=== PATIENT | female | born 1970 | race Caucasian/White ===

== ENCOUNTER 2022-05-28 19:46 | Inpatient (IN) | payer MEDICAID, OTHER ==
[~2022-05-28] VITALS: Ht 167.6 cm; Wt 60.3 kg
[~2022-05-28 19:46] MED LIST: ARIP20TA PO; CLOZ100T32 PO; DOCU100C33 PO; FENO145T PO; LITH300T4 PO; LUBI24CA2 PO; MOME17N NASAL; PANT-31 PO; PROP20TA18 PO; PSYL3.4P5 PO; QUET100T PO; TRIH2TAB3 PO
[2022-05-28] MEDS ORDERED: DiphenhydrAMINE HCL 50 MG/ML VIAL IM ONE (21:45)
[2022-05-28] MEDS ORDERED: ZIPRASIDONE MESYLATE 20 MG/VIAL IM ONE (21:45)
[2022-05-28] MEDS ORDERED: DIAZEPAM 5 MG/ML 2 ML SYRINGE IM ONE (21:45)
[2022-05-28 23:16] LABS: APPEARANCE,URINE CLEAR (CLEAR); BILIRUBIN,URINE NEGATIVE (NEGATIVE); GLUCOSE, URINE (UA) >=1000 mg/dL (NEGATIVE); KETONES,URINE NEGATIVE (NEGATIVE); LEUKOCYTE ESTERASE ,URINE NEGATIVE (NEGATIVE); NITRATE,URINE NEGATIVE (NEGATIVE); OCCULT BLOOD,URINE NEGATIVE (NEGATIVE); PROTEIN,URINE NEGATIVE (NEGATIVE); SPECIFIC GRAVITIY, URINE 1.027 (1.003-1.030); UROBILINOGEN,URINE <=1.0 mg/dL (<=1.0)
[2022-05-28 23:25] LABS: BACTERIA,URINE None Seen /HPF (None Seen); RBC,URINE None Seen /HPF (0-2); WBC,URINE 0-2 /HPF (0-5)
[2022-05-28 23:27] LABS: AMPHET/METH SCREEN,URINE NEGATIVE (NEGATIVE); BARBITURATE SCREEN, URINE NEGATIVE (NEGATIVE); BENZODIAZEPINES SCREEN,URINE NEGATIVE (NEGATIVE); CANNABINOID SCREEN,URINE NEGATIVE (NEGATIVE); COCAINE SCREEN,URINE NEGATIVE (NEGATIVE); METHADONE SCREEN, URINE NEGATIVE (NEGATIVE); OPIATE SCREEN,URINE NEGATIVE (NEGATIVE)
[2022-05-28 23:29] LABS: PHENCYCLIDINE SCREEN,URINE NEGATIVE (NEGATIVE)
[2022-05-28 23:34] LABS: BASOPHILS % (AUTO) 0.7 % (0.0-2.0); EOSINOPHILS % (AUTO) 1.6 % (1.0-6.0); HEMATOCRIT 39.8 % (36-46); HEMOGLOBIN 13.6 g/dL (12.0-16.0); LYMPHOCYTES # (AUTO) 1.4 K/uL (1.0-4.8); LYMPHOCYTES % (AUTO) 23.1 % (22.0-44.0); MEAN CORPUSCULAR HEMOGLOBIN 29.6 pg (26.0-34.0); MEAN CORPUSCULAR HGB CONC 34.3 G/dL (31.0-37.0); MEAN CORPUSCULAR VOLUME 86 fL (80-100); MONOCYTES # (AUTO) 0.6 K/uL (0.1-1.0); MONOCYTES % (AUTO) 9.2 % (2.0-9.0); NEUTROPHILS # (AUTO) 3.9 K/uL (1.8-7.7); NEUTROPHILS % (AUTO) 65.4 % (40.0-70.0); PLATELET COUNT (AUTO) 231 K/uL (150-450); RED BLOOD CELL COUNT(AUTO) 4.61 MIL/uL (4.00-5.20)
[2022-05-28 23:42] LABS: ANION GAP 4 mmol/L (8-16); CARBON DIOXIDE 28 mmol/L (22-29); CHLORIDE 104 mmol/L (98-107); CREATININE 0.76 mg/dL (0.60-1.30); GLUCOSE,RANDOM 241 mg/dL (70-110); SODIUM SERUM 136 mmol/L (136-145); UREA NITROGEN, BLOOD 14 mg/dL (7-18)
[2022-05-28 23:43] LABS: GLOMERULAR FILTR. RATE CALC > 60 mL/min (>60)
[2022-05-28 23:47] LABS: ALANINE AMINOTRANSFERASE 45 U/L (12-78); ALBUMIN 3.7 g/dL (3.4-5.0); ALKALINE PHOSPHATASE 103 U/L (46-116); ASPARTATE AMINOTRANSFERASE 29 U/L (15-37); BILIRUBIN,TOTAL 0.5 mg/dL (0.1-1.0); TOTAL PROTEIN, SERUM 6.7 g/dL (6.4-8.2)
[2022-05-29 00:25] LABS: COVID AG,FIA SOURCE NASAL SWAB
[2022-05-29 06:26] VITALS: BP 116/72
[2022-05-29 08:00] VITALS: BP 104/72
[2022-05-29] MEDS ORDERED: BENZOCAINE/MENTHOL LOZENGE PO PRN (18:45)
[2022-05-29] MEDS ORDERED: ONDANSETRON HCL 4 MG TABLET PO PRN (18:45)
[2022-05-29] MEDS ORDERED: ACETAMINOPHEN 325 MG TABLET PO PRN (18:45)
[2022-05-29] MEDS ORDERED: MAG HYDROX/AL HYDROX/SIMETH ES 30 ML SUSPENSION UDCUP PO PRN (18:45)
[2022-05-29] MEDS ORDERED: BACITRACIN 28 GM OINTMENT TP PRN (18:45)
[2022-05-29] MEDS ORDERED: CloNIDine HCL 0.1 MG TABLET PO PRN (18:45)
[2022-05-29] MEDS ORDERED: GLUCAGON,HUMAN RECOMBINANT 1 MG VIAL IM PRN ×2 (18:45→19:00)
[2022-05-29] MEDS ORDERED: IBUPROFEN 600 MG TABLET PO PRN (18:45)
[2022-05-29] MEDS ORDERED: OMEPRAZOLE 20 MG CAPSULE PO PRN (18:45)
[2022-05-29] MEDS ORDERED: ALBUTEROL SULFATE HFA 90 MCG/PUFF 8 GM INHALER IH PRN (18:45)
[2022-05-29] MEDS ORDERED: PETROLATUM,WHITE 28 GM JELLY TP PRN (18:45)
[2022-05-29] MEDS ORDERED: MAGNESIUM HYDROXIDE SUSPENSION 30 ML UDCUP PO PRN (18:45)
[2022-05-29] MEDS ORDERED: LOPERAMIDE HCL 2 MG CAPSULE PO PRN (18:45)
[2022-05-30] MEDS: LUBIPROSTONE 24 MCG CAPSULE PO SCH (08:17)
[2022-05-30] MEDS: MOMETASONE FUROATE 50 MCG/SPRAY 17 GM NASAL SPRAY NASAL SCH (08:17)
[2022-05-30] MEDS: LITHIUM CARBONATE 300 MG CAPSULE PO SCH ×2 (08:17→17:00)
[2022-05-30] MEDS ORDERED: CloZAPine 25 MG TABLET PO SCH (09:00)
[2022-05-30 21:47] VITALS: BP 109/62
[2022-05-31] MEDS: LITHIUM CARBONATE 300 MG CAPSULE PO SCH ×2 (08:01→18:29)
[2022-05-31] MEDS: LUBIPROSTONE 24 MCG CAPSULE PO SCH (08:04)
[2022-05-31] MEDS: MOMETASONE FUROATE 50 MCG/SPRAY 17 GM NASAL SPRAY NASAL SCH (08:05)
[2022-05-31] MEDS ORDERED: CloZAPine 25 MG TABLET PO SCH ×2 (09:00→21:00)
[2022-05-31] MEDS: ZOLPIDEM TARTRATE 10 MG TABLET PO PRN (21:23)
[2022-05-31 22:11] LABS: GLUCOMETER DEV NAME(LOC) BV3S.; GLUCOSE,POINT OF CARE 416 MG/DL (70-110)
[2022-05-31] MEDS: INSULIN LISPRO 100 UNITS/ML SQ PRN ×2 (22:11→22:13)
[2022-05-31 23:06] LABS: GLUCOMETER DEV NAME(LOC) BV3S.; GLUCOSE,POINT OF CARE 369 MG/DL (70-110)
[2022-06-01 00:51] LABS: GLUCOMETER DEV NAME(LOC) BV3S.; GLUCOSE,POINT OF CARE 212 MG/DL (70-110)
[2022-06-01 03:12] VITALS: BP 123/67
[2022-06-01 06:36] LABS: GLUCOMETER DEV NAME(LOC) BV3S.; GLUCOSE,POINT OF CARE 243 MG/DL (70-110)
[2022-06-01 08:29] VITALS: BP 116/69
[2022-06-01] MEDS: LUBIPROSTONE 24 MCG CAPSULE PO SCH (08:32)
[2022-06-01] MEDS: LITHIUM CARBONATE 300 MG CAPSULE PO SCH ×2 (08:32→16:13)
[2022-06-01] MEDS: MOMETASONE FUROATE 50 MCG/SPRAY 17 GM NASAL SPRAY NASAL SCH (08:33)
[2022-06-01] MEDS: LORazepam 2 MG TABLET PO PRN ×2 (08:43→19:17)
[2022-06-01] MEDS ORDERED: CloZAPine 25 MG TABLET PO SCH ×2 (09:00→21:00)
[2022-06-01] MEDS: INSULIN LISPRO 100 UNITS/ML SQ PRN ×3 (11:59→21:20)
[2022-06-01 12:17] LABS: GLUCOMETER DEV NAME(LOC) BV3S.; GLUCOSE,POINT OF CARE 335 MG/DL (70-110)
[2022-06-01 16:56] LABS: GLUCOMETER DEV NAME(LOC) BV3S.; GLUCOSE,POINT OF CARE 307 MG/DL (70-110)
[2022-06-01] MEDS: ZOLPIDEM TARTRATE 10 MG TABLET PO PRN (20:14)
[2022-06-01 21:31] LABS: GLUCOMETER DEV NAME(LOC) BV3S.; GLUCOSE,POINT OF CARE 266 MG/DL (70-110)
[2022-06-02 06:41] LABS: GLUCOMETER DEV NAME(LOC) BV3S.; GLUCOSE,POINT OF CARE 247 MG/DL (70-110)
[2022-06-02] MEDS: INSULIN LISPRO 100 UNITS/ML SQ PRN ×2 (06:52→11:51)
[2022-06-02] MEDS: CloZAPine 25 MG TABLET PO SCH ×2 (08:52→20:03)
[2022-06-02] MEDS: LITHIUM CARBONATE 300 MG CAPSULE PO SCH ×2 (08:52→16:06)
[2022-06-02] MEDS: LUBIPROSTONE 24 MCG CAPSULE PO SCH (08:52)
[2022-06-02 09:00] VITALS: BP 107/68
[2022-06-02] MEDS: LORazepam 2 MG TABLET PO PRN (09:00)
[2022-06-02] MEDS: MOMETASONE FUROATE 50 MCG/SPRAY 17 GM NASAL SPRAY NASAL SCH (09:00)
[2022-06-02 12:01] LABS: GLUCOMETER DEV NAME(LOC) BV3S.; GLUCOSE,POINT OF CARE 242 MG/DL (70-110)
[2022-06-02 13:30] VITALS: BP 107/68
[2022-06-02 16:31] LABS: GLUCOMETER DEV NAME(LOC) BV3S.; GLUCOSE,POINT OF CARE 237 MG/DL (70-110)
[2022-06-02] MEDS: ZOLPIDEM TARTRATE 10 MG TABLET PO PRN (20:03)
[2022-06-02] MEDS: DOCUSATE SODIUM 100 MG CAPSULE PO PRN (20:03)
[2022-06-02 20:27] VITALS: BP 102/60
[2022-06-03 06:16] LABS: GLUCOMETER DEV NAME(LOC) BV3S.; GLUCOSE,POINT OF CARE 263 MG/DL (70-110)
[2022-06-03] MEDS: INSULIN LISPRO 100 UNITS/ML SQ PRN ×3 (06:44→20:25)
[2022-06-03] MEDS: LUBIPROSTONE 24 MCG CAPSULE PO SCH (07:23)
[2022-06-03] MEDS: MULTIVITAMINS WITH MINERALS, THERAPEUTIC TABLET PO SCH (08:07)
[2022-06-03] MEDS: LITHIUM CARBONATE 300 MG CAPSULE PO SCH ×2 (08:08→16:20)
[2022-06-03] MEDS: CloZAPine 25 MG TABLET PO SCH ×2 (08:09→20:26)
[2022-06-03 08:56] VITALS: BP 100/66
[2022-06-03 12:06] LABS: GLUCOMETER DEV NAME(LOC) BV3S.; GLUCOSE,POINT OF CARE 262 MG/DL (70-110)
[2022-06-03 16:50] LABS: GLUCOMETER DEV NAME(LOC) BV3S.; GLUCOSE,POINT OF CARE 217 MG/DL (70-110)
[2022-06-03 20:06] VITALS: BP 113/71
[2022-06-03] MEDS: ZOLPIDEM TARTRATE 10 MG TABLET PO PRN (20:26)
[2022-06-03] MEDS: DOCUSATE SODIUM 100 MG CAPSULE PO PRN (21:00)
[2022-06-03 21:26] LABS: GLUCOMETER DEV NAME(LOC) BV3S.; GLUCOSE,POINT OF CARE 307 MG/DL (70-110)
[2022-06-04] MEDS: LUBIPROSTONE 24 MCG CAPSULE PO SCH (06:44)
[2022-06-04] MEDS: LITHIUM CARBONATE 300 MG CAPSULE PO SCH ×2 (08:18→16:10)
[2022-06-04] MEDS: MULTIVITAMINS WITH MINERALS, THERAPEUTIC TABLET PO SCH (08:19)
[2022-06-04] MEDS ORDERED: CloZAPine 25 MG TABLET PO SCH (09:00)
[2022-06-04 09:40] VITALS: BP 101/66
[2022-06-04] MEDS: DOCUSATE SODIUM 100 MG CAPSULE PO PRN (14:06)
[2022-06-04] MEDS ORDERED: CloZAPine 100 MG TABLET PO SCH (21:00)
[2022-06-05] MEDS: LUBIPROSTONE 24 MCG CAPSULE PO SCH (07:01)
[2022-06-05] MEDS: MULTIVITAMINS WITH MINERALS, THERAPEUTIC TABLET PO SCH (08:19)
[2022-06-05] MEDS: LITHIUM CARBONATE 300 MG CAPSULE PO SCH ×2 (08:20→16:50)
[2022-06-05 08:25] VITALS: BP 106/82
[2022-06-05] MEDS ORDERED: CloZAPine 25 MG TABLET PO SCH (09:00)
[2022-06-05 20:28] VITALS: BP 112/72
[2022-06-05] MEDS ORDERED: CloZAPine 100 MG TABLET PO SCH (21:00)
[2022-06-05] MEDS: ZOLPIDEM TARTRATE 10 MG TABLET PO PRN (21:01)
[2022-06-06] MEDS: LUBIPROSTONE 24 MCG CAPSULE PO SCH (06:44)
[2022-06-06 08:26] VITALS: BP 112/60
[2022-06-06] MEDS: LITHIUM CARBONATE 300 MG CAPSULE PO SCH ×2 (08:55→16:10)
[2022-06-06] MEDS: MULTIVITAMINS WITH MINERALS, THERAPEUTIC TABLET PO SCH (08:55)
[2022-06-06] MEDS ORDERED: CloZAPine 25 MG TABLET PO SCH (09:00)
[2022-06-06 11:26] LABS: GLUCOMETER DEV NAME(LOC) POC.BV
[2022-06-06] MEDS ORDERED: CloZAPine 100 MG TABLET PO SCH (21:00)
[2022-06-06] MEDS: ZOLPIDEM TARTRATE 10 MG TABLET PO PRN (21:03)
[2022-06-07] MEDS: LUBIPROSTONE 24 MCG CAPSULE PO SCH (06:49)
[2022-06-07] MEDS: MULTIVITAMINS WITH MINERALS, THERAPEUTIC TABLET PO SCH (08:19)
[2022-06-07] MEDS: LITHIUM CARBONATE 300 MG CAPSULE PO SCH ×2 (08:19→16:59)
[2022-06-07 08:27] VITALS: BP 122/69
[2022-06-07] MEDS ORDERED: CloZAPine 100 MG TABLET PO SCH (09:00)
[2022-06-07 12:11] LABS: GLUCOMETER DEV NAME(LOC) BV3S.; GLUCOSE,POINT OF CARE 337 MG/DL (70-110)
[2022-06-07] MEDS: ZOLPIDEM TARTRATE 10 MG TABLET PO PRN (20:27)
[2022-06-07] MEDS: QUEtiapine FUMARATE 200 MG TABLET PO SCH ×2 (20:30→21:13)
[2022-06-08] MEDS: LUBIPROSTONE 24 MCG CAPSULE PO SCH (06:48)
[2022-06-08] MEDS: MULTIVITAMINS WITH MINERALS, THERAPEUTIC TABLET PO SCH (08:10)
[2022-06-08] MEDS: LITHIUM CARBONATE 300 MG CAPSULE PO SCH ×2 (08:10→17:02)
[2022-06-08] MEDS: QUEtiapine FUMARATE 100 MG TABLET PO SCH (08:10)
[2022-06-08] MEDS: QUEtiapine FUMARATE 200 MG TABLET PO SCH (20:10)
[2022-06-08 20:26] VITALS: BP 110/67
[2022-06-08] MEDS: DOCUSATE SODIUM 100 MG CAPSULE PO PRN (20:34)
[2022-06-08] MEDS: ZOLPIDEM TARTRATE 10 MG TABLET PO PRN (21:20)
[2022-06-09] MEDS: LUBIPROSTONE 24 MCG CAPSULE PO SCH (06:18)
[2022-06-09] MEDS: QUEtiapine FUMARATE 100 MG TABLET PO SCH (08:14)
[2022-06-09] MEDS: MULTIVITAMINS WITH MINERALS, THERAPEUTIC TABLET PO SCH (08:14)
[2022-06-09] MEDS: LITHIUM CARBONATE 300 MG CAPSULE PO SCH ×2 (08:14→16:19)
[2022-06-09] MEDS ORDERED: CloZAPine 25 MG TABLET PO SCH (09:00)
[2022-06-09] MEDS ORDERED: CloZAPine 100 MG TABLET PO SCH (21:00)
[2022-06-09] MEDS: QUEtiapine FUMARATE 300 MG TABLET PO SCH (21:37)
[2022-06-09] MEDS: ZOLPIDEM TARTRATE 10 MG TABLET PO PRN (21:37)
[2022-06-10] MEDS: LUBIPROSTONE 24 MCG CAPSULE PO SCH (06:28)
[2022-06-10] MEDS: LITHIUM CARBONATE 300 MG CAPSULE PO SCH ×2 (08:38→16:43)
[2022-06-10] MEDS ORDERED: CloZAPine 25 MG TABLET PO SCH (09:00)
[2022-06-10] MEDS: MULTIVITAMINS WITH MINERALS, THERAPEUTIC TABLET PO SCH (09:01)
[2022-06-10] MEDS: QUEtiapine FUMARATE 300 MG TABLET PO SCH (20:54)
[2022-06-10] MEDS: ZOLPIDEM TARTRATE 10 MG TABLET PO PRN (20:59)
[2022-06-10] MEDS ORDERED: CloZAPine 100 MG TABLET PO SCH (21:00)
[2022-06-11] MEDS: LORazepam 2 MG TABLET PO PRN ×2 (03:20→21:22)
[2022-06-11] MEDS: LUBIPROSTONE 24 MCG CAPSULE PO SCH (06:37)
[2022-06-11] MEDS: LITHIUM CARBONATE 300 MG CAPSULE PO SCH ×2 (08:12→16:29)
[2022-06-11] MEDS: MULTIVITAMINS WITH MINERALS, THERAPEUTIC TABLET PO SCH (08:12)
[2022-06-11] MEDS ORDERED: CloZAPine 100 MG TABLET PO SCH ×2 (09:00→21:00)
[2022-06-11] MEDS: QUEtiapine FUMARATE 300 MG TABLET PO SCH (20:07)
[2022-06-11] MEDS: ZOLPIDEM TARTRATE 10 MG TABLET PO PRN (21:22)
[2022-06-12] MEDS: LUBIPROSTONE 24 MCG CAPSULE PO SCH (06:19)
[2022-06-12] MEDS: LITHIUM CARBONATE 300 MG CAPSULE PO SCH ×2 (08:10→16:11)
[2022-06-12] MEDS: MULTIVITAMINS WITH MINERALS, THERAPEUTIC TABLET PO SCH (08:10)
[2022-06-12] MEDS: QUEtiapine FUMARATE 300 MG TABLET PO SCH (20:07)
[2022-06-12] MEDS: ZOLPIDEM TARTRATE 10 MG TABLET PO PRN (20:07)
[2022-06-13] MEDS: LORazepam 2 MG TABLET PO PRN ×2 (00:29→20:08)
[2022-06-13] MEDS: LUBIPROSTONE 24 MCG CAPSULE PO SCH (06:30)
[2022-06-13] MEDS: MULTIVITAMINS WITH MINERALS, THERAPEUTIC TABLET PO SCH (08:09)
[2022-06-13] MEDS: LITHIUM CARBONATE 300 MG CAPSULE PO SCH ×2 (08:09→17:02)
[2022-06-13 09:24] LABS: BASOPHILS % (AUTO) 1.3 % (0.0-2.0); EOSINOPHILS % (AUTO) 2.7 % (1.0-6.0); HEMATOCRIT 41.1 % (36-46); HEMOGLOBIN 13.7 g/dL (12.0-16.0); LYMPHOCYTES # (AUTO) 1.4 K/uL (1.0-4.8); LYMPHOCYTES % (AUTO) 25.9 % (22.0-44.0); MEAN CORPUSCULAR HEMOGLOBIN 29.3 pg (26.0-34.0); MEAN CORPUSCULAR HGB CONC 33.4 G/dL (31.0-37.0); MEAN CORPUSCULAR VOLUME 88 fL (80-100); MONOCYTES # (AUTO) 0.5 K/uL (0.1-1.0); MONOCYTES % (AUTO) 8.6 % (2.0-9.0); NEUTROPHILS # (AUTO) 3.3 K/uL (1.8-7.7); NEUTROPHILS % (AUTO) 61.5 % (40.0-70.0); PLATELET COUNT (AUTO) 247 K/uL (150-450); RED BLOOD CELL COUNT(AUTO) 4.69 MIL/uL (4.00-5.20); RED CELL DISTRIBUTION WIDTH 13.3 % (11.5-14.5)
[2022-06-13 09:38] LABS: HEMOGLOBIN A1C 9.3 % (3.8-5.6)
[2022-06-13 09:46] LABS: LITHIUM 0.66 mmol/L (0.60-1.20)
[2022-06-13 10:09] LABS: CHOL/HDL RATIO 3.3 (3.9-5.7); FREE T4 (FREE THYROXINE) 0.86 ng/dL (0.76-1.46); THYROID STIMULATING HORMONE 1.46 uIU/mL (0.36-3.74)
[2022-06-13] MEDS: QUEtiapine FUMARATE 300 MG TABLET PO SCH (20:08)
[2022-06-13] MEDS: DOCUSATE SODIUM 100 MG CAPSULE PO PRN (20:13)
[2022-06-13] MEDS: ZOLPIDEM TARTRATE 10 MG TABLET PO PRN (21:08)
[2022-06-14] MEDS: LORazepam 2 MG TABLET PO PRN ×2 (04:04→20:18)
[2022-06-14 06:06] LABS: GLUCOMETER DEV NAME(LOC) BV3S.; GLUCOSE,POINT OF CARE 182 MG/DL (70-110)
[2022-06-14] MEDS: LUBIPROSTONE 24 MCG CAPSULE PO SCH (06:52)
[2022-06-14] MEDS: MULTIVITAMINS WITH MINERALS, THERAPEUTIC TABLET PO SCH (08:10)
[2022-06-14] MEDS: LITHIUM CARBONATE 300 MG CAPSULE PO SCH ×2 (08:10→16:06)
[2022-06-14 11:50] LABS: GLUCOMETER DEV NAME(LOC) BV3S.; GLUCOSE,POINT OF CARE 273 MG/DL (70-110)
[2022-06-14 12:53] VITALS: BP 121/87
[2022-06-14] MEDS: QUEtiapine FUMARATE 300 MG TABLET PO SCH (20:18)
[2022-06-14] MEDS: ZOLPIDEM TARTRATE 10 MG TABLET PO PRN (20:18)
[2022-06-14 20:23] VITALS: BP 133/80
[2022-06-15] MEDS: LORazepam 2 MG TABLET PO PRN (03:51)
[2022-06-15] MEDS: LUBIPROSTONE 24 MCG CAPSULE PO SCH (07:36)
[2022-06-15 08:19] VITALS: BP 116/69
[2022-06-15] MEDS: LITHIUM CARBONATE 300 MG CAPSULE PO SCH (08:27)
[2022-06-15] MEDS: MULTIVITAMINS WITH MINERALS, THERAPEUTIC TABLET PO SCH (08:27)
[2022-06-15] MEDS ORDERED: QUET300T19 PO (12:49)
[2022-06-15] MEDS ORDERED: LITH300C3 PO (12:49)
== END 2022-06-15 15:00 | disposition home or self-care (01) | DRG 750 ==
LOC: EMS 19:46 → B3A 05-29 00:16
PROVIDERS: ADMIT Psychiatry & Neurology Psychiatry; ATTEND Psychiatry & Neurology Psychiatry
DX: F25.9 Schizoaffective disorder, unspecified (principal); E11.65 Type 2 diabetes mellitus with hyperglycemia; E78.00 Pure hypercholesterolemia, unspecified; F17.200 Nicotine dependence, unspecified, uncomplicated; J44.9 Chronic obstructive pulmonary disease, unspecified; K59.00 Constipation, unspecified; L80 Vitiligo; F41.9 Anxiety disorder, unspecified; G47.00 Insomnia, unspecified; K21.9 Gastro-esophageal reflux disease without esophagitis; K59.09 Other constipation; Z20.822 Contact with and (suspected) exposure to COVID-19; Z88.8 Allergy status to other drugs, medicaments and biological substances; Z79.899 Other long term (current) drug therapy
CPT/HCPCS: 70450; 80053; 80061; 80178; 81001; 82962; 83036; 84439; 84443; 85025; 87081; 99285; G0480; J1200; J3486; Q0162

== ENCOUNTER 2022-10-21 12:56 | Inpatient (IN) | payer MEDICAID, OTHER ==
[~2022-10-21] VITALS: Ht 157.5 cm; Wt 67.3 kg
[~2022-10-21 12:56] MED LIST changes: -ARIP20TA PO; -CLOZ100T32 PO; -DOCU100C33 PO; -FENO145T PO; +LITH300C3 PO; -LITH300T4 PO; -MOME17N NASAL; -PANT-31 PO; -PROP20TA18 PO; -PSYL3.4P5 PO; -QUET100T PO; +QUET300T19 PO; -TRIH2TAB3 PO
[2022-10-21] MEDS ORDERED: SODIUM CHLORIDE 0.9% 1,000 ML IV ONE (15:00)
[2022-10-21] MEDS ORDERED: DIPH25TA51 PO (15:05)
[2022-10-21] MEDS ORDERED: FLUP10TA28 PO (15:05)
[2022-10-21] MEDS ORDERED: CHOL25TA4 PO (15:05)
[2022-10-21] MEDS ORDERED: LORA-1000 PO (15:05)
[2022-10-21] MEDS ORDERED: OMEG-135 PO (15:05)
[2022-10-21] MEDS ORDERED: MELA5TAB40 PO (15:05)
[2022-10-21] MEDS ORDERED: DIPH25CA85 PO (15:05)
[2022-10-21] MEDS ORDERED: QUET300T2 PO (15:05)
[2022-10-21] MEDS ORDERED: CHLO50I IM (15:05)
[2022-10-21] MEDS ORDERED: METF-1211 PO (15:05)
[2022-10-21] MEDS ORDERED: ZOLP10TA8 PO (15:05)
[2022-10-21 15:14] LABS: COVID AG,FIA SOURCE NASOPHARYNGEAL
[2022-10-21 15:15] LABS: BASOPHILS % (AUTO) 0.5 % (0.0-2.0); EOSINOPHILS % (AUTO) 0.9 % (1.0-6.0); HEMATOCRIT 43.3 % (36-46); HEMOGLOBIN 14.4 g/dL (12.0-16.0); LYMPHOCYTES # (AUTO) 1.2 K/uL (1.0-4.8); LYMPHOCYTES % (AUTO) 17.8 % (22.0-44.0); MEAN CORPUSCULAR HEMOGLOBIN 29.2 pg (26.0-34.0); MEAN CORPUSCULAR HGB CONC 33.3 G/dL (31.0-37.0); MEAN CORPUSCULAR VOLUME 88 fL (80-100); MONOCYTES # (AUTO) 0.5 K/uL (0.1-1.0); MONOCYTES % (AUTO) 6.9 % (2.0-9.0); NEUTROPHILS # (AUTO) 4.9 K/uL (1.8-7.7); NEUTROPHILS % (AUTO) 73.9 % (40.0-70.0); PLATELET COUNT (AUTO) 223 K/uL (150-450); RED BLOOD CELL COUNT(AUTO) 4.94 MIL/uL (4.00-5.20); RED CELL DISTRIBUTION WIDTH 13.1 % (11.5-14.5)
[2022-10-21] MEDS ORDERED: LORazepam 2 MG/ML VIAL IVP ONE (15:15)
[2022-10-21] MEDS ORDERED: DiphenhydrAMINE HCL 50 MG/ML VIAL IVP ONE (15:15)
[2022-10-21 15:30] LABS: ANION GAP 11 mmol/L (8-16); CALCIUM, TOTAL 9.3 mg/dL (8.8-10.5); CARBON DIOXIDE 25 mmol/L (22-29); CHLORIDE 103 mmol/L (98-107); CREATININE 0.65 mg/dL (0.60-1.30); GLUCOSE,RANDOM 273 mg/dL (70-110); POTASSIUM 4.6 mmol/L (3.5-5.1); SODIUM SERUM 139 mmol/L (136-145); UREA NITROGEN, BLOOD 15 mg/dL (7-18)
[2022-10-21 15:33] LABS: GLOMERULAR FILTR. RATE CALC > 60 mL/min (>60); LITHIUM < 0.20 mmol/L (0.60-1.20)
[2022-10-21 15:36] LABS: ALANINE AMINOTRANSFERASE 27 U/L (12-78); ALBUMIN 3.7 g/dL (3.4-5.0); ALKALINE PHOSPHATASE 145 U/L (46-116); ASPARTATE AMINOTRANSFERASE 18 U/L (15-37); BILIRUBIN,TOTAL 0.6 mg/dL (0.1-1.0); TOTAL PROTEIN, SERUM 7.7 g/dL (6.4-8.2)
[2022-10-21] MEDS ORDERED: FluPHENAZine HCL 2.5 MG/ML INJ IM ONE (16:15)
[2022-10-21] MEDS ORDERED: MetFORMIN HCL 500 MG TABLET PO ONE (17:45)
[2022-10-21] MEDS ORDERED: DEXTROSE 50%-WATER 25 GM/50 ML SYRINGE IVP PRN (17:45)
[2022-10-21 17:51] LABS: GLUCOSE,POINT OF CARE 236 MG/DL (70-110)
[2022-10-21 19:31] LABS: GLUCOMETER DEV NAME(LOC) ERT.5; GLUCOSE,POINT OF CARE 281 MG/DL (70-110)
[2022-10-21 21:30] VITALS: BP 104/80
[2022-10-21] MEDS: INSULIN LISPRO 100 UNITS/ML SQ PRN (21:43)
[2022-10-21 21:55] LABS: GLUCOMETER DEV NAME(LOC) 3E.C; GLUCOSE,POINT OF CARE 293 MG/DL (70-110)
[2022-10-21] MEDS ORDERED: ACETAMINOPHEN 325 MG TABLET PO PRN (22:15)
[2022-10-21] MEDS: LORazepam 2 MG TABLET PO PRN (22:36)
[2022-10-21] MEDS: ZOLPIDEM TARTRATE 10 MG TABLET PO PRN (22:57)
[2022-10-22] MEDS: LORazepam 2 MG TABLET PO PRN ×2 (06:34→23:12)
[2022-10-22] MEDS: MetFORMIN HCL 500 MG TABLET PO SCH ×2 (06:34→16:43)
[2022-10-22 06:41] LABS: GLUCOMETER DEV NAME(LOC) 3E.C; GLUCOSE,POINT OF CARE 317 MG/DL (70-110)
[2022-10-22] MEDS: INSULIN LISPRO 100 UNITS/ML SQ PRN ×4 (07:35→20:57)
[2022-10-22 09:23] VITALS: BP 103/96
[2022-10-22 09:30] LABS: APPEARANCE,URINE CLEAR (CLEAR); BILIRUBIN,URINE NEGATIVE (NEGATIVE); GLUCOSE, URINE (UA) >=1000 mg/dL (NEGATIVE); LEUKOCYTE ESTERASE ,URINE NEGATIVE (NEGATIVE); NITRATE,URINE NEGATIVE (NEGATIVE); OCCULT BLOOD,URINE NEGATIVE (NEGATIVE); PROTEIN,URINE NEGATIVE (NEGATIVE); SPECIFIC GRAVITIY, URINE 1.032 (1.003-1.030); UROBILINOGEN,URINE <=1.0 mg/dL (<=1.0)
[2022-10-22 09:37] LABS: AMPHET/METH SCREEN,URINE NEGATIVE (NEGATIVE); BARBITURATE SCREEN, URINE NEGATIVE (NEGATIVE); BENZODIAZEPINES SCREEN,URINE NEGATIVE (NEGATIVE); CANNABINOID SCREEN,URINE NEGATIVE (NEGATIVE); COCAINE SCREEN,URINE NEGATIVE (NEGATIVE); METHADONE SCREEN, URINE NEGATIVE (NEGATIVE); OPIATE SCREEN,URINE NEGATIVE (NEGATIVE)
[2022-10-22 09:45] LABS: PHENCYCLIDINE SCREEN,URINE NEGATIVE (NEGATIVE)
[2022-10-22] MEDS ORDERED: MAGNESIUM HYDROXIDE SUSPENSION 30 ML UDCUP PO PRN (11:00)
[2022-10-22] MEDS ORDERED: GuaiFENesin/D-METHORPHAN [SUGAR-FREE] 200-20MG/10 ML SYRUP UDCUP PO PRN (11:00)
[2022-10-22] MEDS ORDERED: NICOTINE 14 MG/24 HOUR PATCH TD PRN (11:00)
[2022-10-22] MEDS ORDERED: MAG HYDROX/AL HYDROX/SIMETH ES 30 ML SUSPENSION UDCUP PO PRN (11:00)
[2022-10-22] MEDS ORDERED: CloNIDine HCL 0.1 MG TABLET PO PRN (11:00)
[2022-10-22] MEDS ORDERED: LOPERAMIDE HCL 2 MG CAPSULE PO PRN (11:00)
[2022-10-22] MEDS ORDERED: ACETAMINOPHEN 325 MG TABLET PO PRN (11:00)
[2022-10-22] MEDS ORDERED: ONDANSETRON HCL 4 MG TABLET PO PRN (11:00)
[2022-10-22] MEDS ORDERED: IBUPROFEN 400 MG TABLET PO PRN (11:00)
[2022-10-22] MEDS ORDERED: DOCUSATE SODIUM 100 MG CAPSULE PO PRN (11:00)
[2022-10-22] MEDS ORDERED: ALBUTEROL SULFATE HFA 90 MCG/PUFF 8 GM INHALER IH PRN (11:00)
[2022-10-22] MEDS ORDERED: PETROLATUM,WHITE 28 GM JELLY TP PRN (11:00)
[2022-10-22] MEDS: FluPHENAZine HCL 10 MG TABLET PO SCH ×2 (11:24→20:17)
[2022-10-22] MEDS: DIVALPROEX SODIUM 500 MG DR TABLET PO SCH ×2 (11:24→20:17)
[2022-10-22] MEDS: OMEGA-3/DHA/EPA/FISH OIL 1,000 MG CAPSULE PO SCH (11:24)
[2022-10-22 11:29] LABS: RBC,URINE None Seen /HPF (0-2); SQUAMOUS EPITHELIAL CELL,UR Many /LPF (None Seen)
[2022-10-22 11:30] LABS: BACTERIA,URINE None Seen /HPF (None Seen); WBC,URINE 0-2 /HPF (0-5)
[2022-10-22 11:51] LABS: GLUCOMETER DEV NAME(LOC) 3E.C; GLUCOSE,POINT OF CARE 373 MG/DL (70-110)
[2022-10-22 16:11] VITALS: BP 104/70
[2022-10-22 16:56] LABS: GLUCOMETER DEV NAME(LOC) 3E.C; GLUCOSE,POINT OF CARE 269 MG/DL (70-110)
[2022-10-22 17:04] VITALS: BP 104/70
[2022-10-22] MEDS: QUEtiapine FUMARATE 300 MG TABLET PO SCH (20:17)
[2022-10-22] MEDS: DiphenhydrAMINE HCL 25 MG CAPSULE PO SCH (20:17)
[2022-10-22] MEDS: MELATONIN 5 MG TABLET PO SCH (20:17)
[2022-10-22 21:11] LABS: GLUCOMETER DEV NAME(LOC) 3E.C; GLUCOSE,POINT OF CARE 357 MG/DL (70-110)
[2022-10-22] MEDS: ZOLPIDEM TARTRATE 10 MG TABLET PO PRN (23:12)
[2022-10-23] MEDS: LORazepam 2 MG TABLET PO PRN ×2 (04:33→13:36)
[2022-10-23] MEDS: QUEtiapine FUMARATE 100 MG TABLET PO PRN (04:33)
[2022-10-23 05:21] LABS: GLUCOMETER DEV NAME(LOC) 3E.C; GLUCOSE,POINT OF CARE 271 MG/DL (70-110)
[2022-10-23] MEDS: MetFORMIN HCL 500 MG TABLET PO SCH ×2 (06:39→17:42)
[2022-10-23] MEDS: INSULIN LISPRO 100 UNITS/ML SQ PRN ×3 (06:40→17:34)
[2022-10-23] MEDS: DIVALPROEX SODIUM 500 MG DR TABLET PO SCH ×2 (08:27→20:42)
[2022-10-23] MEDS: FluPHENAZine HCL 10 MG TABLET PO SCH ×2 (08:27→20:43)
[2022-10-23] MEDS: OMEGA-3/DHA/EPA/FISH OIL 1,000 MG CAPSULE PO SCH (08:27)
[2022-10-23 09:10] VITALS: BP 124/84
[2022-10-23 11:46] LABS: GLUCOMETER DEV NAME(LOC) 3E.C; GLUCOSE,POINT OF CARE 269 MG/DL (70-110)
[2022-10-23 16:31] LABS: GLUCOMETER DEV NAME(LOC) 3E.C; GLUCOSE,POINT OF CARE 268 MG/DL (70-110)
[2022-10-23 18:55] VITALS: BP 127/77
[2022-10-23 19:57] LABS: GLUCOMETER DEV NAME(LOC) 3E.C; GLUCOSE,POINT OF CARE 269 MG/DL (70-110)
[2022-10-23] MEDS: MELATONIN 5 MG TABLET PO SCH (20:42)
[2022-10-23] MEDS: DiphenhydrAMINE HCL 25 MG CAPSULE PO SCH (20:43)
[2022-10-23] MEDS: QUEtiapine FUMARATE 300 MG TABLET PO SCH (20:43)
[2022-10-23] MEDS: ZOLPIDEM TARTRATE 10 MG TABLET PO PRN (21:05)
[2022-10-24] MEDS: QUEtiapine FUMARATE 100 MG TABLET PO PRN (05:05)
[2022-10-24] MEDS: LORazepam 2 MG TABLET PO PRN ×2 (05:05→17:17)
[2022-10-24 06:26] LABS: GLUCOMETER DEV NAME(LOC) 3E.C; GLUCOSE,POINT OF CARE 325 MG/DL (70-110)
[2022-10-24] MEDS: INSULIN LISPRO 100 UNITS/ML SQ PRN ×4 (06:33→21:12)
[2022-10-24] MEDS: MetFORMIN HCL 500 MG TABLET PO SCH ×2 (06:35→17:35)
[2022-10-24] MEDS: FluPHENAZine HCL 10 MG TABLET PO SCH ×2 (07:54→20:53)
[2022-10-24] MEDS: DIVALPROEX SODIUM 500 MG DR TABLET PO SCH ×2 (07:55→20:53)
[2022-10-24] MEDS: OMEGA-3/DHA/EPA/FISH OIL 1,000 MG CAPSULE PO SCH (07:55)
[2022-10-24 08:04] VITALS: BP 104/70
[2022-10-24 11:51] LABS: GLUCOMETER DEV NAME(LOC) 3E.C; GLUCOSE,POINT OF CARE 390 MG/DL (70-110)
[2022-10-24 16:09] VITALS: BP 110/72
[2022-10-24 17:07] LABS: GLUCOMETER DEV NAME(LOC) 3E.C; GLUCOSE,POINT OF CARE 326 MG/DL (70-110)
[2022-10-24 20:09] VITALS: BP 110/69
[2022-10-24] MEDS: DiphenhydrAMINE HCL 25 MG CAPSULE PO SCH (20:53)
[2022-10-24] MEDS: QUEtiapine FUMARATE 300 MG TABLET PO SCH (20:53)
[2022-10-24] MEDS: ZOLPIDEM TARTRATE 10 MG TABLET PO PRN (20:54)
[2022-10-24] MEDS: MELATONIN 5 MG TABLET PO SCH (20:54)
[2022-10-24 21:31] LABS: GLUCOMETER DEV NAME(LOC) 3E.C; GLUCOSE,POINT OF CARE 251 MG/DL (70-110)
[2022-10-25] MEDS: MetFORMIN HCL 500 MG TABLET PO SCH ×2 (06:33→17:13)
[2022-10-25] MEDS: INSULIN LISPRO 100 UNITS/ML SQ PRN ×4 (06:39→20:25)
[2022-10-25 06:41] LABS: GLUCOMETER DEV NAME(LOC) 3E.C; GLUCOSE,POINT OF CARE 334 MG/DL (70-110)
[2022-10-25 08:08] VITALS: BP 115/67
[2022-10-25] MEDS: FluPHENAZine HCL 10 MG TABLET PO SCH ×2 (08:43→20:22)
[2022-10-25] MEDS: DIVALPROEX SODIUM 500 MG DR TABLET PO SCH ×2 (08:44→20:22)
[2022-10-25] MEDS: OMEGA-3/DHA/EPA/FISH OIL 1,000 MG CAPSULE PO SCH (08:45)
[2022-10-25 13:11] LABS: GLUCOMETER DEV NAME(LOC) 3E.C; GLUCOSE,POINT OF CARE 427 MG/DL (70-110)
[2022-10-25] MEDS ORDERED: INSULIN LISPRO 100 UNITS/ML SQ ONE (13:15)
[2022-10-25] MEDS: LORazepam 2 MG TABLET PO PRN (15:04)
[2022-10-25 17:21] LABS: GLUCOMETER DEV NAME(LOC) 3E.C; GLUCOSE,POINT OF CARE 372 MG/DL (70-110)
[2022-10-25] MEDS: QUEtiapine FUMARATE 300 MG TABLET PO SCH (20:22)
[2022-10-25] MEDS: ZOLPIDEM TARTRATE 10 MG TABLET PO PRN (20:22)
[2022-10-25] MEDS: MELATONIN 5 MG TABLET PO SCH (20:23)
[2022-10-25] MEDS: DiphenhydrAMINE HCL 25 MG CAPSULE PO SCH (20:23)
[2022-10-25 20:27] LABS: GLUCOMETER DEV NAME(LOC) 3E.C; GLUCOSE,POINT OF CARE 287 MG/DL (70-110)
[2022-10-26] MEDS: INSULIN LISPRO 100 UNITS/ML SQ PRN ×3 (06:12→21:04)
[2022-10-26] MEDS: MetFORMIN HCL 500 MG TABLET PO SCH ×2 (06:16→17:19)
[2022-10-26 06:40] LABS: GLUCOMETER DEV NAME(LOC) 3E.C; GLUCOSE,POINT OF CARE 279 MG/DL (70-110)
[2022-10-26 08:04] VITALS: BP 116/81
[2022-10-26] MEDS: FluPHENAZine HCL 10 MG TABLET PO SCH ×2 (09:44→20:52)
[2022-10-26] MEDS: DIVALPROEX SODIUM 500 MG DR TABLET PO SCH ×2 (09:45→20:51)
[2022-10-26] MEDS: OMEGA-3/DHA/EPA/FISH OIL 1,000 MG CAPSULE PO SCH (09:45)
[2022-10-26 12:21] LABS: GLUCOMETER DEV NAME(LOC) 3E.C; GLUCOSE,POINT OF CARE 458 MG/DL (70-110)
[2022-10-26] MEDS: LORazepam 2 MG TABLET PO PRN ×2 (12:28→18:19)
[2022-10-26] MEDS: QUEtiapine FUMARATE 100 MG TABLET PO PRN ×2 (12:28→18:19)
[2022-10-26] MEDS ORDERED: INSULIN LISPRO 100 UNITS/ML SQ ONE (12:30)
[2022-10-26 16:14] VITALS: BP 118/71
[2022-10-26 17:47] LABS: GLUCOMETER DEV NAME(LOC) 3E.C; GLUCOSE,POINT OF CARE 329 MG/DL (70-110)
[2022-10-26 20:32] LABS: GLUCOMETER DEV NAME(LOC) 3E.C; GLUCOSE,POINT OF CARE 362 MG/DL (70-110)
[2022-10-26] MEDS: MELATONIN 5 MG TABLET PO SCH (20:52)
[2022-10-26] MEDS: DiphenhydrAMINE HCL 25 MG CAPSULE PO SCH (20:52)
[2022-10-26] MEDS: QUEtiapine FUMARATE 300 MG TABLET PO SCH (20:52)
[2022-10-26] MEDS: ZOLPIDEM TARTRATE 10 MG TABLET PO PRN (20:53)
[2022-10-27] MEDS: LORazepam 2 MG TABLET PO PRN (01:53)
[2022-10-27] MEDS: QUEtiapine FUMARATE 100 MG TABLET PO PRN ×2 (01:53→17:16)
[2022-10-27 06:51] LABS: GLUCOMETER DEV NAME(LOC) 3E.C; GLUCOSE,POINT OF CARE 256 MG/DL (70-110)
[2022-10-27] MEDS: MetFORMIN HCL 500 MG TABLET PO SCH ×2 (07:03→17:15)
[2022-10-27] MEDS: INSULIN LISPRO 100 UNITS/ML SQ PRN ×3 (07:08→17:28)
[2022-10-27 08:01] LABS: COVID AG,FIA SOURCE NASAL SWAB
[2022-10-27] MEDS: OMEGA-3/DHA/EPA/FISH OIL 1,000 MG CAPSULE PO SCH (08:18)
[2022-10-27] MEDS: FluPHENAZine HCL 10 MG TABLET PO SCH (08:18)
[2022-10-27] MEDS: DIVALPROEX SODIUM 500 MG DR TABLET PO SCH (08:18)
[2022-10-27 08:30] VITALS: BP 120/74
[2022-10-27] MEDS ORDERED: QUET300T19 PO (08:52)
[2022-10-27] MEDS ORDERED: METF-1211 PO (08:52)
[2022-10-27] MEDS ORDERED: OMEG-135 PO (08:52)
[2022-10-27] MEDS ORDERED: DIVA-112 PO ×2 (08:52→08:53)
[2022-10-27] MEDS ORDERED: MELA5TAB40 PO (08:52)
[2022-10-27] MEDS ORDERED: FLUP10TA28 PO (08:52)
[2022-10-27] MEDS ORDERED: DIPH25CA85 PO (08:52)
[2022-10-27 11:31] LABS: GLUCOMETER DEV NAME(LOC) 3E.C; GLUCOSE,POINT OF CARE 273 MG/DL (70-110)
[2022-10-27 17:32] LABS: GLUCOMETER DEV NAME(LOC) 3E.C; GLUCOSE,POINT OF CARE 318 MG/DL (70-110)
== END 2022-10-27 20:15 | DRG 750 ==
LOC: EMS 13:02 → 3EC 17:16
PROVIDERS: ADMIT Psychiatry & Neurology Psychiatry; ATTEND Psychiatry & Neurology Psychiatry
DX: F20.0 Paranoid schizophrenia (principal); R45.851 Suicidal ideations; E03.9 Hypothyroidism, unspecified; F94.0 Selective mutism; I10 Essential (primary) hypertension; E11.65 Type 2 diabetes mellitus with hyperglycemia; E78.5 Hyperlipidemia, unspecified; G47.00 Insomnia, unspecified; J44.9 Chronic obstructive pulmonary disease, unspecified; K21.9 Gastro-esophageal reflux disease without esophagitis; Z20.822 Contact with and (suspected) exposure to COVID-19; S00.10XA Contusion of unspecified eyelid and periocular area, initial encounter; Z78.1 Physical restraint status; Z79.899 Other long term (current) drug therapy; Z87.891 Personal history of nicotine dependence; X83.8XXA Intentional self-harm by other specified means, initial encounter; Y93.89 Activity, other specified; Y92.89 Other specified places as the place of occurrence of the external cause; Y99.8 Other external cause status; Z88.8 Allergy status to other drugs, medicaments and biological substances
CPT/HCPCS: 80053; 80178; 80307; 81001; 81003; 82962; 83036; 85025; 87081; 99285; G0480; J1200; J1815; J2060; J3490; J7030; Q9967

== ENCOUNTER 2022-11-04 16:27 | Inpatient (IN) | payer MEDICAID, OTHER ==
[~2022-11-04] VITALS: Ht 160 cm; Wt 64.5 kg
[~2022-11-04 16:27] MED LIST changes: +DIPH25CA85 PO; +DIVA-112 PO; +FLUP10TA28 PO; -LITH300C3 PO; -LUBI24CA2 PO; +MELA5TAB40 PO; +METF-1211 PO; +OMEG-135 PO
[2022-11-04] MEDS ORDERED: DiphenhydrAMINE HCL 50 MG/ML VIAL IM ONE (18:15)
[2022-11-04] MEDS ORDERED: FluPHENAZine HCL 2.5 MG/ML INJ IM ONE (18:15)
[2022-11-04] MEDS ORDERED: LORazepam 2 MG/ML VIAL IM ONE (18:15)
[2022-11-04 19:30] LABS: COVID AG,FIA SOURCE NASAL SWAB
[2022-11-04 21:40] VITALS: BP 101/65
[2022-11-04] MEDS ORDERED: IBUPROFEN 400 MG TABLET PO PRN (22:15)
[2022-11-04] MEDS ORDERED: ALBUTEROL SULFATE HFA 90 MCG/PUFF 8 GM INHALER IH PRN (22:15)
[2022-11-04] MEDS ORDERED: MAG HYDROX/AL HYDROX/SIMETH ES 30 ML SUSPENSION UDCUP PO PRN (22:15)
[2022-11-04] MEDS ORDERED: DOCUSATE SODIUM 100 MG CAPSULE PO PRN (22:15)
[2022-11-04] MEDS ORDERED: ONDANSETRON HCL 4 MG TABLET PO PRN (22:15)
[2022-11-04] MEDS ORDERED: CloNIDine HCL 0.1 MG TABLET PO PRN (22:15)
[2022-11-04] MEDS ORDERED: GuaiFENesin/D-METHORPHAN [SUGAR-FREE] 200-20MG/10 ML SYRUP UDCUP PO PRN (22:15)
[2022-11-04] MEDS ORDERED: ACETAMINOPHEN 325 MG TABLET PO PRN (22:15)
[2022-11-04] MEDS ORDERED: DEXTROSE 50%-WATER 25 GM/50 ML SYRINGE IVP PRN (22:15)
[2022-11-04] MEDS ORDERED: LOPERAMIDE HCL 2 MG CAPSULE PO PRN (22:15)
[2022-11-04] MEDS ORDERED: MAGNESIUM HYDROXIDE SUSPENSION 30 ML UDCUP PO PRN (22:15)
[2022-11-04] MEDS ORDERED: PETROLATUM,WHITE 28 GM JELLY TP PRN (22:15)
[2022-11-04] MEDS ORDERED: NICOTINE 14 MG/24 HOUR PATCH TD PRN (22:15)
[2022-11-04 23:12] LABS: APPEARANCE,URINE CLEAR (CLEAR); BILIRUBIN,URINE NEGATIVE (NEGATIVE); GLUCOSE, URINE (UA) >=1000 mg/dL (NEGATIVE); LEUKOCYTE ESTERASE ,URINE NEGATIVE (NEGATIVE); NITRATE,URINE NEGATIVE (NEGATIVE); OCCULT BLOOD,URINE NEGATIVE (NEGATIVE); PH,URINE 6.5 (5.0-8.0); PROTEIN,URINE NEGATIVE (NEGATIVE); SPECIFIC GRAVITIY, URINE 1.023 (1.003-1.030); UROBILINOGEN,URINE <=1.0 mg/dL (<=1.0)
[2022-11-04 23:19] LABS: AMPHET/METH SCREEN,URINE NEGATIVE (NEGATIVE); BARBITURATE SCREEN, URINE NEGATIVE (NEGATIVE); BENZODIAZEPINES SCREEN,URINE NEGATIVE (NEGATIVE); CANNABINOID SCREEN,URINE NEGATIVE (NEGATIVE); COCAINE SCREEN,URINE NEGATIVE (NEGATIVE); METHADONE SCREEN, URINE NEGATIVE (NEGATIVE); OPIATE SCREEN,URINE NEGATIVE (NEGATIVE)
[2022-11-04 23:20] LABS: BACTERIA,URINE None Seen /HPF (None Seen); PHENCYCLIDINE SCREEN,URINE NEGATIVE (NEGATIVE); RBC,URINE None Seen /HPF (0-2)
[2022-11-05 06:31] LABS: GLUCOMETER DEV NAME(LOC) 3E.C; GLUCOSE,POINT OF CARE 368 MG/DL (70-110)
[2022-11-05] MEDS: INSULIN LISPRO 100 UNITS/ML SQ PRN ×3 (06:46→21:07)
[2022-11-05 07:11] LABS: BASOPHILS % (AUTO) 0.6 % (0.0-2.0); EOSINOPHILS % (AUTO) 1.9 % (1.0-6.0); HEMATOCRIT 39.1 % (36-46); HEMOGLOBIN 13.4 g/dL (12.0-16.0); LYMPHOCYTES # (AUTO) 1.5 K/uL (1.0-4.8); LYMPHOCYTES % (AUTO) 22.3 % (22.0-44.0); MEAN CORPUSCULAR HEMOGLOBIN 30.3 pg (26.0-34.0); MEAN CORPUSCULAR HGB CONC 34.2 G/dL (31.0-37.0); MEAN CORPUSCULAR VOLUME 89 fL (80-100); MONOCYTES # (AUTO) 0.8 K/uL (0.1-1.0); MONOCYTES % (AUTO) 11.3 % (2.0-9.0); NEUTROPHILS # (AUTO) 4.3 K/uL (1.8-7.7); NEUTROPHILS % (AUTO) 63.9 % (40.0-70.0); PLATELET COUNT (AUTO) 236 K/uL (150-450); RED BLOOD CELL COUNT(AUTO) 4.41 MIL/uL (4.00-5.20); RED CELL DISTRIBUTION WIDTH 13.6 % (11.5-14.5)
[2022-11-05 08:00] VITALS: BP 100/56
[2022-11-05 08:56] LABS: ALANINE AMINOTRANSFERASE 30 U/L (12-78); ALBUMIN 3.3 g/dL (3.4-5.0); ALKALINE PHOSPHATASE 115 U/L (46-116); ANION GAP 9 mmol/L (8-16); ASPARTATE AMINOTRANSFERASE 24 U/L (15-37); BILIRUBIN,TOTAL 0.4 mg/dL (0.1-1.0); CARBON DIOXIDE 25 mmol/L (22-29); CHLORIDE 102 mmol/L (98-107); CHOL/HDL RATIO 3.4 (3.9-5.7); CHOLESTEROL 214 mg/dL (131-200); CREATININE 0.64 mg/dL (0.60-1.30); GLUCOSE,RANDOM 400 mg/dL (70-110); HDL CHOLESTEROL 63 mg/dL (40-60); LDL CHOL (CALC.) 96 mg/dL (0-130); POTASSIUM 4.5 mmol/L (3.5-5.1); SODIUM SERUM 136 mmol/L (136-145); THYROID STIMULATING HORMONE 1.24 uIU/mL (0.36-3.74); TRIGLYCERIDES 273 mg/dL (15-150); UREA NITROGEN, BLOOD 15 mg/dL (7-18)
[2022-11-05 08:57] LABS: GLOMERULAR FILTR. RATE CALC > 60 mL/min (>60)
[2022-11-05 09:18] LABS: HEMOGLOBIN A1C 12.3 % (3.8-5.6)
[2022-11-05] MEDS: QUEtiapine FUMARATE 100 MG TABLET PO PRN ×2 (09:33→15:54)
[2022-11-05] MEDS: LORazepam 2 MG TABLET PO PRN ×2 (09:33→18:09)
[2022-11-05] MEDS ORDERED: ONDANSETRON HCL 4 MG TABLET PO PRN (10:15)
[2022-11-05] MEDS ORDERED: DOCUSATE SODIUM 100 MG CAPSULE PO PRN (10:15)
[2022-11-05] MEDS ORDERED: GuaiFENesin/D-METHORPHAN [SUGAR-FREE] 200-20MG/10 ML SYRUP UDCUP PO PRN (10:15)
[2022-11-05] MEDS ORDERED: IBUPROFEN 400 MG TABLET PO PRN (10:15)
[2022-11-05] MEDS ORDERED: LOPERAMIDE HCL 2 MG CAPSULE PO PRN (10:15)
[2022-11-05] MEDS ORDERED: ACETAMINOPHEN 325 MG TABLET PO PRN (10:15)
[2022-11-05] MEDS ORDERED: NICOTINE 14 MG/24 HOUR PATCH TD PRN (10:15)
[2022-11-05] MEDS ORDERED: CloNIDine HCL 0.1 MG TABLET PO PRN (10:15)
[2022-11-05] MEDS ORDERED: ALBUTEROL SULFATE HFA 90 MCG/PUFF 8 GM INHALER IH PRN (10:15)
[2022-11-05] MEDS ORDERED: PETROLATUM,WHITE 28 GM JELLY TP PRN (10:15)
[2022-11-05] MEDS ORDERED: MAG HYDROX/AL HYDROX/SIMETH ES 30 ML SUSPENSION UDCUP PO PRN (10:15)
[2022-11-05] MEDS ORDERED: MAGNESIUM HYDROXIDE SUSPENSION 30 ML UDCUP PO PRN (10:15)
[2022-11-05] MEDS: FluPHENAZine HCL 10 MG TABLET PO SCH ×2 (11:00→20:27)
[2022-11-05] MEDS: DIVALPROEX SODIUM 500 MG DR TABLET PO SCH ×2 (11:00→20:27)
[2022-11-05 16:04] VITALS: BP 124/77
[2022-11-05 16:06] LABS: GLUCOMETER DEV NAME(LOC) 3E.C; GLUCOSE,POINT OF CARE 303 MG/DL (70-110)
[2022-11-05] MEDS: MetFORMIN HCL 500 MG TABLET PO SCH (17:32)
[2022-11-05] MEDS: MELATONIN 5 MG TABLET PO SCH (20:27)
[2022-11-05] MEDS: QUEtiapine FUMARATE 300 MG TABLET PO SCH (20:27)
[2022-11-05] MEDS: DiphenhydrAMINE HCL 25 MG CAPSULE PO SCH (20:27)
[2022-11-05 20:41] LABS: GLUCOMETER DEV NAME(LOC) 3E.C; GLUCOSE,POINT OF CARE 387 MG/DL (70-110)
[2022-11-05] MEDS: ZOLPIDEM TARTRATE 10 MG TABLET PO PRN (21:11)
[2022-11-06 06:21] LABS: GLUCOMETER DEV NAME(LOC) 3E.C; GLUCOSE,POINT OF CARE 314 MG/DL (70-110)
[2022-11-06] MEDS: MetFORMIN HCL 500 MG TABLET PO SCH ×2 (06:50→16:55)
[2022-11-06] MEDS: INSULIN LISPRO 100 UNITS/ML SQ PRN ×4 (06:56→22:03)
[2022-11-06] MEDS: FluPHENAZine HCL 10 MG TABLET PO SCH ×2 (07:54→20:59)
[2022-11-06] MEDS: DIVALPROEX SODIUM 500 MG DR TABLET PO SCH ×2 (07:54→20:59)
[2022-11-06] MEDS: QUEtiapine FUMARATE 100 MG TABLET PO PRN ×2 (07:54→14:45)
[2022-11-06 10:12] VITALS: BP 120/79
[2022-11-06] MEDS: LORazepam 2 MG TABLET PO PRN (10:53)
[2022-11-06 11:11] LABS: GLUCOMETER DEV NAME(LOC) 3E.C; GLUCOSE,POINT OF CARE 331 MG/DL (70-110)
[2022-11-06 16:46] LABS: GLUCOMETER DEV NAME(LOC) 3E.C; GLUCOSE,POINT OF CARE 291 MG/DL (70-110)
[2022-11-06 17:05] VITALS: BP 115/78
[2022-11-06] MEDS: MELATONIN 5 MG TABLET PO SCH (20:59)
[2022-11-06] MEDS: QUEtiapine FUMARATE 300 MG TABLET PO SCH (20:59)
[2022-11-06] MEDS: DiphenhydrAMINE HCL 25 MG CAPSULE PO SCH (20:59)
[2022-11-06 21:28] LABS: GLUCOMETER DEV NAME(LOC) 3E.C; GLUCOSE,POINT OF CARE 396 MG/DL (70-110)
[2022-11-06] MEDS: ZOLPIDEM TARTRATE 10 MG TABLET PO PRN (21:50)
[2022-11-07] MEDS: LORazepam 2 MG TABLET PO PRN ×3 (00:10→12:00)
[2022-11-07 05:56] LABS: GLUCOMETER DEV NAME(LOC) 3E.C; GLUCOSE,POINT OF CARE 312 MG/DL (70-110)
[2022-11-07] MEDS: INSULIN LISPRO 100 UNITS/ML SQ PRN ×3 (06:49→20:28)
[2022-11-07] MEDS: MetFORMIN HCL 500 MG TABLET PO SCH ×2 (06:51→17:01)
[2022-11-07 08:27] VITALS: BP 125/87
[2022-11-07] MEDS: DIVALPROEX SODIUM 500 MG DR TABLET PO SCH ×2 (08:30→20:22)
[2022-11-07] MEDS: FluPHENAZine HCL 10 MG TABLET PO SCH ×2 (08:30→20:22)
[2022-11-07] MEDS: QUEtiapine FUMARATE 100 MG TABLET PO PRN (13:00)
[2022-11-07 16:22] VITALS: BP 93/55
[2022-11-07] MEDS: DiphenhydrAMINE HCL 25 MG CAPSULE PO SCH (20:21)
[2022-11-07] MEDS: MELATONIN 5 MG TABLET PO SCH (20:21)
[2022-11-07] MEDS: QUEtiapine FUMARATE 300 MG TABLET PO SCH (20:22)
[2022-11-07] MEDS: ZOLPIDEM TARTRATE 10 MG TABLET PO PRN (21:15)
[2022-11-08] MEDS: LORazepam 2 MG TABLET PO PRN ×4 (04:04→22:14)
[2022-11-08 06:28] LABS: GLUCOMETER DEV NAME(LOC) 3E.C; GLUCOSE,POINT OF CARE 314 MG/DL (70-110)
[2022-11-08] MEDS: MetFORMIN HCL 500 MG TABLET PO SCH ×2 (06:38→18:25)
[2022-11-08] MEDS: INSULIN LISPRO 100 UNITS/ML SQ PRN ×4 (06:42→20:34)
[2022-11-08 08:21] VITALS: BP 111/67
[2022-11-08] MEDS: FluPHENAZine HCL 10 MG TABLET PO SCH ×2 (08:38→20:30)
[2022-11-08] MEDS: OMEGA-3/DHA/EPA/FISH OIL 1,000 MG CAPSULE PO SCH (08:38)
[2022-11-08] MEDS: DIVALPROEX SODIUM 500 MG DR TABLET PO SCH ×2 (08:38→20:30)
[2022-11-08 09:54] LABS: GLUCOMETER DEV NAME(LOC) 3E.C; GLUCOSE,POINT OF CARE 282 MG/DL (70-110)
[2022-11-08 09:54] LABS: GLUCOMETER DEV NAME(LOC) 3E.C; GLUCOSE,POINT OF CARE 307 MG/DL (70-110)
[2022-11-08 09:54] LABS: GLUCOMETER DEV NAME(LOC) 3E.C; GLUCOSE,POINT OF CARE 385 MG/DL (70-110)
[2022-11-08] MEDS: QUEtiapine FUMARATE 100 MG TABLET PO PRN ×2 (10:30→18:25)
[2022-11-08 20:29] LABS: GLUCOMETER DEV NAME(LOC) 3E.C; GLUCOSE,POINT OF CARE 273 MG/DL (70-110)
[2022-11-08] MEDS: QUEtiapine FUMARATE 300 MG TABLET PO SCH (20:30)
[2022-11-08] MEDS: DiphenhydrAMINE HCL 25 MG CAPSULE PO SCH (20:30)
[2022-11-08] MEDS: MELATONIN 5 MG TABLET PO SCH (20:31)
[2022-11-08] MEDS: ZOLPIDEM TARTRATE 10 MG TABLET PO PRN (22:14)
[2022-11-09] MEDS: QUEtiapine FUMARATE 100 MG TABLET PO PRN ×3 (04:11→18:09)
[2022-11-09] MEDS: INSULIN LISPRO 100 UNITS/ML SQ PRN ×4 (06:36→21:11)
[2022-11-09] MEDS: MetFORMIN HCL 500 MG TABLET PO SCH ×2 (06:37→17:18)
[2022-11-09 06:48] LABS: GLUCOMETER DEV NAME(LOC) 3E.C; GLUCOSE,POINT OF CARE 323 MG/DL (70-110)
[2022-11-09 08:20] VITALS: BP 115/72
[2022-11-09] MEDS: OMEGA-3/DHA/EPA/FISH OIL 1,000 MG CAPSULE PO SCH (08:27)
[2022-11-09] MEDS: LORazepam 2 MG TABLET PO PRN ×3 (08:28→18:09)
[2022-11-09] MEDS: DIVALPROEX SODIUM 500 MG DR TABLET PO SCH ×2 (08:28→20:49)
[2022-11-09] MEDS: FluPHENAZine HCL 10 MG TABLET PO SCH ×2 (08:28→21:45)
[2022-11-09 16:22] LABS: GLUCOMETER DEV NAME(LOC) 3E.C; GLUCOSE,POINT OF CARE 308 MG/DL (70-110)
[2022-11-09 16:40] VITALS: BP 117/72
[2022-11-09] MEDS: DiphenhydrAMINE HCL 25 MG CAPSULE PO SCH (20:49)
[2022-11-09] MEDS: QUEtiapine FUMARATE 300 MG TABLET PO SCH (20:49)
[2022-11-09] MEDS: MELATONIN 5 MG TABLET PO SCH (20:49)
[2022-11-09] MEDS: ZOLPIDEM TARTRATE 10 MG TABLET PO PRN (20:49)
[2022-11-10 00:48] VITALS: BP 132/77
[2022-11-10 00:59] VITALS: BP 132/77
[2022-11-10 06:37] LABS: COVID AG,FIA SOURCE NASAL SWAB
[2022-11-10] MEDS: INSULIN LISPRO 100 UNITS/ML SQ PRN ×3 (06:51→17:46)
[2022-11-10] MEDS: MetFORMIN HCL 500 MG TABLET PO SCH ×2 (06:52→16:49)
[2022-11-10 07:12] LABS: GLUCOMETER DEV NAME(LOC) 3E.C; GLUCOSE,POINT OF CARE 224 MG/DL (70-110)
[2022-11-10 08:00] VITALS: BP 136/95
[2022-11-10] MEDS: DIVALPROEX SODIUM 500 MG DR TABLET PO SCH ×2 (08:32→20:14)
[2022-11-10] MEDS: FluPHENAZine HCL 10 MG TABLET PO SCH ×2 (08:32→20:14)
[2022-11-10] MEDS: OMEGA-3/DHA/EPA/FISH OIL 1,000 MG CAPSULE PO SCH (08:32)
[2022-11-10] MEDS: LORazepam 2 MG TABLET PO PRN ×2 (11:20→17:54)
[2022-11-10 11:23] LABS: GLUCOMETER DEV NAME(LOC) 3E.C; GLUCOSE,POINT OF CARE 249 MG/DL (70-110)
[2022-11-10 12:54] LABS: GLUCOMETER DEV NAME(LOC) 3E.C; GLUCOSE,POINT OF CARE 231 MG/DL (70-110)
[2022-11-10 12:54] LABS: GLUCOMETER DEV NAME(LOC) 3E.C; GLUCOSE,POINT OF CARE 300 MG/DL (70-110)
[2022-11-10 12:54] LABS: GLUCOMETER DEV NAME(LOC) 3E.C; GLUCOSE,POINT OF CARE 290 MG/DL (70-110)
[2022-11-10 12:54] LABS: GLUCOMETER DEV NAME(LOC) 3E.C; GLUCOSE,POINT OF CARE 231 MG/DL (70-110)
[2022-11-10] MEDS: QUEtiapine FUMARATE 100 MG TABLET PO PRN ×2 (12:59→18:31)
[2022-11-10 16:21] VITALS: BP 106/66
[2022-11-10 16:48] LABS: GLUCOMETER DEV NAME(LOC) 3E.C; GLUCOSE,POINT OF CARE 312 MG/DL (70-110)
[2022-11-10] MEDS: DiphenhydrAMINE HCL 25 MG CAPSULE PO SCH (20:13)
[2022-11-10] MEDS: MELATONIN 5 MG TABLET PO SCH (20:14)
[2022-11-10] MEDS: QUEtiapine FUMARATE 300 MG TABLET PO SCH (20:14)
[2022-11-10 20:37] LABS: GLUCOMETER DEV NAME(LOC) 3E.C; GLUCOSE,POINT OF CARE 140 MG/DL (70-110)
[2022-11-11] MEDS: MetFORMIN HCL 500 MG TABLET PO SCH ×2 (06:49→16:37)
[2022-11-11] MEDS: INSULIN LISPRO 100 UNITS/ML SQ PRN ×4 (06:50→21:02)
[2022-11-11 06:57] LABS: GLUCOMETER DEV NAME(LOC) 3E.C; GLUCOSE,POINT OF CARE 217 MG/DL (70-110)
[2022-11-11] MEDS: OMEGA-3/DHA/EPA/FISH OIL 1,000 MG CAPSULE PO SCH (08:32)
[2022-11-11] MEDS: FluPHENAZine HCL 10 MG TABLET PO SCH ×2 (08:32→21:08)
[2022-11-11] MEDS: DIVALPROEX SODIUM 500 MG DR TABLET PO SCH ×2 (08:32→21:09)
[2022-11-11] MEDS: LORazepam 2 MG TABLET PO PRN ×2 (08:34→14:25)
[2022-11-11 09:22] VITALS: BP 107/67
[2022-11-11] MEDS: QUEtiapine FUMARATE 100 MG TABLET PO PRN ×2 (11:36→16:37)
[2022-11-11 20:53] LABS: GLUCOMETER DEV NAME(LOC) 3E.C; GLUCOSE,POINT OF CARE 220 MG/DL (70-110)
[2022-11-11] MEDS: DiphenhydrAMINE HCL 25 MG CAPSULE PO SCH (21:07)
[2022-11-11] MEDS: QUEtiapine FUMARATE 300 MG TABLET PO SCH (21:07)
[2022-11-11] MEDS: MELATONIN 5 MG TABLET PO SCH (21:15)
[2022-11-11] MEDS: ZOLPIDEM TARTRATE 10 MG TABLET PO PRN (22:00)
[2022-11-12] MEDS: MetFORMIN HCL 500 MG TABLET PO SCH ×2 (06:35→17:22)
[2022-11-12] MEDS: DIVALPROEX SODIUM 500 MG DR TABLET PO SCH ×2 (07:56→20:56)
[2022-11-12] MEDS: FluPHENAZine HCL 10 MG TABLET PO SCH ×2 (07:56→20:56)
[2022-11-12] MEDS: OMEGA-3/DHA/EPA/FISH OIL 1,000 MG CAPSULE PO SCH (07:56)
[2022-11-12] MEDS: QUEtiapine FUMARATE 100 MG TABLET PO PRN ×2 (07:57→16:22)
[2022-11-12 09:30] VITALS: BP 97/60
[2022-11-12] MEDS: INSULIN LISPRO 100 UNITS/ML SQ PRN ×3 (11:20→21:05)
[2022-11-12 11:31] LABS: GLUCOMETER DEV NAME(LOC) 3E.C; GLUCOSE,POINT OF CARE 282 MG/DL (70-110)
[2022-11-12] MEDS: LORazepam 2 MG TABLET PO PRN (14:22)
[2022-11-12 16:04] VITALS: BP 104/76
[2022-11-12 16:16] LABS: GLUCOMETER DEV NAME(LOC) 3E.C; GLUCOSE,POINT OF CARE 304 MG/DL (70-110)
[2022-11-12 20:50] LABS: GLUCOMETER DEV NAME(LOC) 3E.C; GLUCOSE,POINT OF CARE 242 MG/DL (70-110)
[2022-11-12] MEDS: QUEtiapine FUMARATE 300 MG TABLET PO SCH (20:55)
[2022-11-12] MEDS: DiphenhydrAMINE HCL 25 MG CAPSULE PO SCH (20:56)
[2022-11-12] MEDS: MELATONIN 5 MG TABLET PO SCH (20:56)
[2022-11-13] MEDS: MetFORMIN HCL 500 MG TABLET PO SCH ×2 (06:33→17:15)
[2022-11-13] MEDS: INSULIN LISPRO 100 UNITS/ML SQ PRN ×4 (06:33→21:06)
[2022-11-13] MEDS: OMEGA-3/DHA/EPA/FISH OIL 1,000 MG CAPSULE PO SCH (08:02)
[2022-11-13] MEDS: DIVALPROEX SODIUM 500 MG DR TABLET PO SCH ×2 (08:02→20:53)
[2022-11-13] MEDS: QUEtiapine FUMARATE 100 MG TABLET PO PRN ×2 (08:02→12:00)
[2022-11-13] MEDS: FluPHENAZine HCL 10 MG TABLET PO SCH ×2 (08:02→20:53)
[2022-11-13 08:43] VITALS: BP 101/61
[2022-11-13 11:11] LABS: GLUCOMETER DEV NAME(LOC) 3E.C; GLUCOSE,POINT OF CARE 249 MG/DL (70-110)
[2022-11-13] MEDS: LORazepam 2 MG TABLET PO PRN (15:59)
[2022-11-13 16:11] LABS: GLUCOMETER DEV NAME(LOC) 3E.C; GLUCOSE,POINT OF CARE 366 MG/DL (70-110)
[2022-11-13 16:13] VITALS: BP 98/67
[2022-11-13] MEDS: MELATONIN 5 MG TABLET PO SCH (20:53)
[2022-11-13] MEDS: DiphenhydrAMINE HCL 25 MG CAPSULE PO SCH (20:53)
[2022-11-13] MEDS: QUEtiapine FUMARATE 300 MG TABLET PO SCH (20:53)
[2022-11-13] MEDS: ZOLPIDEM TARTRATE 10 MG TABLET PO PRN (23:36)
[2022-11-14] MEDS: QUEtiapine FUMARATE 100 MG TABLET PO PRN ×2 (06:03→13:09)
[2022-11-14] MEDS: MetFORMIN HCL 500 MG TABLET PO SCH ×2 (06:31→17:07)
[2022-11-14] MEDS: INSULIN LISPRO 100 UNITS/ML SQ PRN ×4 (06:35→21:00)
[2022-11-14 06:40] LABS: COVID AG,FIA SOURCE NASAL SWAB
[2022-11-14 08:00] VITALS: BP 96/60
[2022-11-14] MEDS: DIVALPROEX SODIUM 500 MG DR TABLET PO SCH ×2 (08:06→20:43)
[2022-11-14] MEDS: OMEGA-3/DHA/EPA/FISH OIL 1,000 MG CAPSULE PO SCH (08:06)
[2022-11-14] MEDS: FluPHENAZine HCL 10 MG TABLET PO SCH ×2 (08:07→20:43)
[2022-11-14] MEDS: LORazepam 2 MG TABLET PO PRN ×2 (15:48→20:06)
[2022-11-14 16:11] LABS: GLUCOMETER DEV NAME(LOC) 3E.C; GLUCOSE,POINT OF CARE 384 MG/DL (70-110)
[2022-11-14 16:29] VITALS: BP 125/79
[2022-11-14] MEDS: DiphenhydrAMINE HCL 25 MG CAPSULE PO SCH (20:42)
[2022-11-14] MEDS: QUEtiapine FUMARATE 300 MG TABLET PO SCH (20:43)
[2022-11-14 20:46] LABS: GLUCOMETER DEV NAME(LOC) 3E.C; GLUCOSE,POINT OF CARE 210 MG/DL (70-110)
[2022-11-14] MEDS: MELATONIN 5 MG TABLET PO SCH (21:27)
[2022-11-14] MEDS: ZOLPIDEM TARTRATE 10 MG TABLET PO PRN (21:47)
[2022-11-15 06:11] LABS: GLUCOMETER DEV NAME(LOC) 3E.C; GLUCOSE,POINT OF CARE 260 MG/DL (70-110)
[2022-11-15] MEDS: INSULIN LISPRO 100 UNITS/ML SQ PRN ×2 (06:49→11:11)
[2022-11-15] MEDS: MetFORMIN HCL 500 MG TABLET PO SCH (07:00)
[2022-11-15] MEDS: OMEGA-3/DHA/EPA/FISH OIL 1,000 MG CAPSULE PO SCH (08:04)
[2022-11-15] MEDS: DIVALPROEX SODIUM 500 MG DR TABLET PO SCH (08:04)
[2022-11-15] MEDS: FluPHENAZine HCL 10 MG TABLET PO SCH (08:05)
[2022-11-15] MEDS: QUEtiapine FUMARATE 100 MG TABLET PO PRN ×2 (08:06→12:27)
[2022-11-15 08:51] VITALS: BP 105/68
[2022-11-15 11:16] LABS: GLUCOMETER DEV NAME(LOC) 3E.C; GLUCOSE,POINT OF CARE 392 MG/DL (70-110)
[2022-11-15] MEDS: LORazepam 2 MG TABLET PO PRN (12:27)
[2022-11-15 16:26] LABS: GLUCOMETER DEV NAME(LOC) 3E.C; GLUCOSE,POINT OF CARE 286 MG/DL (70-110)
[2022-11-15 16:26] LABS: GLUCOMETER DEV NAME(LOC) 3E.C; GLUCOSE,POINT OF CARE 230 MG/DL (70-110)
[2022-11-15 16:26] LABS: GLUCOMETER DEV NAME(LOC) 3E.C; GLUCOSE,POINT OF CARE 239 MG/DL (70-110)
[2022-11-15 16:26] LABS: GLUCOMETER DEV NAME(LOC) 3E.C; GLUCOSE,POINT OF CARE 224 MG/DL (70-110)
[2022-11-15 16:26] LABS: GLUCOMETER DEV NAME(LOC) 3E.C; GLUCOSE,POINT OF CARE 310 MG/DL (70-110)
[2022-11-15 16:26] LABS: GLUCOMETER DEV NAME(LOC) 3E.C; GLUCOSE,POINT OF CARE 267 MG/DL (70-110)
== END 2022-11-15 16:03 | DRG 750 ==
LOC: EMS 16:46 → 3EC 21:41
PROVIDERS: ADMIT Psychiatry & Neurology Psychiatry; ATTEND Psychiatry & Neurology Psychiatry
DX: F25.0 Schizoaffective disorder, bipolar type (principal); E11.9 Type 2 diabetes mellitus without complications; R45.851 Suicidal ideations; Z20.822 Contact with and (suspected) exposure to COVID-19; E78.5 Hyperlipidemia, unspecified; I10 Essential (primary) hypertension; F32.A Depression, unspecified; J44.9 Chronic obstructive pulmonary disease, unspecified; F17.210 Nicotine dependence, cigarettes, uncomplicated; K21.9 Gastro-esophageal reflux disease without esophagitis; Z59.00 Homelessness unspecified; Z79.899 Other long term (current) drug therapy; Z88.8 Allergy status to other drugs, medicaments and biological substances
CPT/HCPCS: 80053; 80061; 80164; 80307; 81001; 82962; 83036; 84443; 85025; 87081; 99285; J1200; J2060; J3490; Q9967

== ENCOUNTER 2023-01-15 15:37 | Emergency (ER) | payer MEDICAID, OTHER ==
[~2023-01-15] VITALS: Ht 167.6 cm; Wt 64.2 kg
[2023-01-15] MEDS ORDERED: LORazepam 2 MG/ML VIAL IM ONE (19:15)
[2023-01-15 21:15] VITALS: BP 141/88
== END 2023-01-15 22:25 | disposition home or self-care (01) ==
LOC: EMS 15:38
DX: S01.81XA Laceration without foreign body of other part of head, initial encounter (principal); F20.9 Schizophrenia, unspecified; F32.A Depression, unspecified; E11.9 Type 2 diabetes mellitus without complications; F17.210 Nicotine dependence, cigarettes, uncomplicated; X58.XXXA Exposure to other specified factors, initial encounter; Y93.89 Activity, other specified; Y92.89 Other specified places as the place of occurrence of the external cause; Y99.8 Other external cause status
CPT/HCPCS: 99285; 70450; 72125; 96372; J2060